=== PATIENT | male | born 1945 | race African-American/Black ===

== ENCOUNTER 2025-08-10 15:35 | Emergency (ER) | payer MEDICARE, MEDICAID ==
[~2025-08-10] VITALS: Ht 177.8 cm; Wt 95.5 kg
[~2025-08-10 15:35] MED LIST: AMOX1TAB15 PO; ATOR40TA71 PO; DIVA125T32 PO; FLUT1AER IH; FOLI-130 PO; MEMA10TA24 PO; RISP0.5T39 PO
[2025-08-10 16:03] VITALS: PULSE 97
[2025-08-10 16:12] LABS: PLATELET COUNT (AUTO) 194 K/uL (150-450); RED BLOOD CELL COUNT(AUTO) 4.11 MIL/uL (4.50-5.90); RED CELL DISTRIBUTION WIDTH 15.8 % (11.5-14.5); WHITE BLOOD COUNT (AUTO) 5.6 K/uL (4.5-11.0)
[2025-08-10 16:21] LABS: CALCIUM, TOTAL 9.4 mg/dL (8.8-10.5); CREATININE 1.26 mg/dL (0.60-1.30); GLOMERULAR FILTR. RATE CALC > 60 mL/min (>60); GLUCOSE,RANDOM 73 mg/dL (70-110); SODIUM SERUM 136 mmol/L (136-145); UREA NITROGEN, BLOOD 15 mg/dL (7-18)
[2025-08-10 16:52] LABS: COVID AG,FIA SOURCE NASAL SWAB
[2025-08-10 17:01] LABS: APPEARANCE,URINE CLEAR (CLEAR); GLUCOSE, URINE (UA) NEGATIVE (NEGATIVE); LEUKOCYTE ESTERASE ,URINE NEGATIVE (NEGATIVE); NITRATE,URINE NEGATIVE (NEGATIVE); OCCULT BLOOD,URINE NEGATIVE (NEGATIVE); PH,URINE DRUG SCREEN 6.5 (5.0-8.0); SPECIFIC GRAVITIY, URINE 1.012 (1.003-1.030)
[2025-08-10 17:04] LABS: AMPHET/METH SCREEN,URINE NEGATIVE (NEGATIVE); BARBITURATE SCREEN, URINE NEGATIVE (NEGATIVE); CANNABINOID SCREEN,URINE NEGATIVE (NEGATIVE); COCAINE SCREEN,URINE NEGATIVE (NEGATIVE); METHADONE SCREEN, URINE NEGATIVE (NEGATIVE)
[2025-08-10 17:13] LABS: ALCOHOL, URINE DRUG SCREEN NEGATIVE (NEGATIVE)
[2025-08-10 17:17] LABS: SARS-COV2 (COVID) ANTIGEN,FIA Negative (Negative)
[2025-08-10 19:00] VITALS: BP 134/77; RESP 16; O2SAT 96
== END 2025-08-11 04:42 ==
LOC: EMS 08-11 02:20
DX: R45.1 Restlessness and agitation (principal); F20.9 Schizophrenia, unspecified; I12.9 Hypertensive chronic kidney disease with stage 1 through stage 4 chronic kidney disease, or unspecified chronic kidney disease; N18.9 Chronic kidney disease, unspecified; J44.9 Chronic obstructive pulmonary disease, unspecified; F17.210 Nicotine dependence, cigarettes, uncomplicated; Z79.51 Long term (current) use of inhaled steroids; Z79.899 Other long term (current) drug therapy; Z20.822 Contact with and (suspected) exposure to COVID-19
CPT/HCPCS: 87426; 80048; 81003; 85025; 36415; 80307; 99284; G0480